=== PATIENT | male | born 1945 | race Caucasian/White ===

== ENCOUNTER → 2016-10-20 | Outpatient (CLI) | payer MEDICARE ==
[~2016-10-20] MED LIST: ATEN100T PO; BACITAB3 OR; BACT800T5 PO; BAYE325T12 PO; DEXA4TA PO; DOXY100C PO; FLOM5CAP PO; GLUC500T PO; LEVA500T PO; MECL12.575 PO; MILKSUS PO; MOM30SS PO; NEXI40CA PO; PERCOCET PO; PLAV75TA PO; SENO8.6T10 PO; VESI5TAB PO; VIBR100C PO
== END ==
LOC: M ONCR 09:43
PROVIDERS: ATTEND Radiology Radiation Oncology
DX: C34.12 Malignant neoplasm of upper lobe, left bronchus or lung (principal); C79.31 Secondary malignant neoplasm of brain

== ENCOUNTER 2016-10-25 17:47 | Outpatient (CLI) | payer MEDICARE ==
[2016-10-25 19:00] VITALS: BP 118/60
[2016-10-25] MEDS ORDERED: diphenhydrAMINE 25 MG CAP PO ONE (19:15)
[2016-10-25] MEDS ORDERED: ACETAMINOPHEN TAB 650MG DOSE (2X325MG) PO ONE (19:15)
[2016-10-25 22:00] VITALS: BP 109/53
[2016-10-25] MEDS ORDERED: FUROSEMIDE 20 MG/2 ML VIAL (J1940) IV ONE (22:00)
[2016-10-26] MEDS ORDERED: SODIUM CHLORIDE 0.9% INJ 10 ML SYR IV PRN (05:30)
[2016-10-26] MEDS ORDERED: SODIUM CHLORIDE 0.9% INJ 10 ML SYR IV SCH (09:00)
== END 2016-10-26 06:10 | disposition home or self-care (01) ==
LOC: M OPCLI4PV 17:47 → M MSPAV 17:52 → M OPCLI4PV 10-26 06:10
PROVIDERS: ATTEND Internal Medicine Medical Oncology
DX: C34.90 Malignant neoplasm of unspecified part of unspecified bronchus or lung (principal)
CPT/HCPCS: 36430; 86850; 86900; 86901; 86920; J1940; P9016

== ENCOUNTER → 2016-10-25 | Outpatient (REF) | payer MEDICARE ==
[~2016-10-25] MED LIST changes: -PLAV75TA PO; +PLAV75TA38 PO
== END | disposition home or self-care (01) ==
LOC: M LAB REF 10:22
PROVIDERS: ATTEND Internal Medicine Medical Oncology
DX: C34.90 Malignant neoplasm of unspecified part of unspecified bronchus or lung (principal)

== ENCOUNTER 2016-11-15 09:41 | Outpatient (CLI) | payer MEDICARE ==
[~2016-11-15 09:41] MED LIST changes: +ACETAMINOPHEN TAB 650MG DOSE (2X325MG) PO SCH; +SODIUM CHLORIDE 0.9% INJ 10 ML SYR IV SCH; +diphenhydrAMINE 25 MG CAP PO SCH
[2016-11-15] MEDS ORDERED: FUROSEMIDE 20 MG/2 ML VIAL (J1940) IV ONE (10:15)
[2016-11-16] MEDS ORDERED: LEVO25TA5 PO (15:22)
[2016-11-16] MEDS ORDERED: REGL5TAB2 PO (15:24)
[2016-11-16] MEDS ORDERED: PRAV40TA2 PO (15:24)
[2016-11-16] MEDS ORDERED: FENT12PA TOP (15:24)
[2016-11-16] MEDS ORDERED: NEUR300C PO (15:25)
[2016-11-16] MEDS ORDERED: HYDR-2807 PO (15:27)
[2016-11-16] MEDS ORDERED: NITR0.4S14 SL (15:27)
[2016-11-16] MEDS ORDERED: ZOFR8TAB4 PO (15:27)
[2016-11-16] MEDS ORDERED: HYDR-3719 PO (15:27)
[2016-11-16] MEDS ORDERED: BETA0.0543 TOP (15:28)
[2016-11-16] MEDS ORDERED: XGEVINJ SC (15:28)
[2016-11-16] MEDS ORDERED: PEG6SYR SC (15:29)
[2016-11-16] MEDS ORDERED: CLAR10CA3 PO (15:30)
[2016-11-16] MEDS ORDERED: [UNRECOGNIZED DRUG - CODE] PO (15:30)
== END 2016-11-15 15:25 | disposition home or self-care (01) ==
LOC: M INFU 09:41
PROVIDERS: ATTEND Internal Medicine Medical Oncology
DX: D64.9 Anemia, unspecified (principal); Z79.899 Other long term (current) drug therapy; Z79.84 Long term (current) use of oral hypoglycemic drugs; Z88.0 Allergy status to penicillin; Z88.1 Allergy status to other antibiotic agents
CPT/HCPCS: 36430; 86850; 86900; 86901; 86920; J1940; P9016

== ENCOUNTER → 2016-12-06 | Outpatient (REF) | payer MEDICARE ==
[~2016-12-06] MED LIST changes: -ACETAMINOPHEN TAB 650MG DOSE (2X325MG) PO SCH; +BETA0.0543 TOP; +CLAR10CA3 PO; +FENT12PA TOP; +HYDR-2807 PO; +HYDR-3719 PO; +LEVO25TA5 PO; +NEUR300C PO; +NITR0.4S14 SL; +PEG6SYR SC; +PRAV40TA2 PO; +REGL5TAB2 PO; -SODIUM CHLORIDE 0.9% INJ 10 ML SYR IV SCH; +XGEVINJ SC; +ZOFR8TAB4 PO; +[UNRECOGNIZED DRUG - CODE] PO; -diphenhydrAMINE 25 MG CAP PO SCH
== END ==
LOC: M LAB REF 13:00
PROVIDERS: ATTEND Internal Medicine Medical Oncology
DX: C32.1 Malignant neoplasm of supraglottis (principal); D64.9 Anemia, unspecified

== ENCOUNTER 2016-12-07 06:59 | Outpatient (CLI) | payer MEDICARE ==
[~2016-12-07] VITALS: Ht 172.7 cm; Wt 81.0 kg
[~2016-12-07 06:59] MED LIST changes: +ACETAMINOPHEN TAB 650MG DOSE (2X325MG) PO ONE; +diphenhydrAMINE 25 MG CAP PO ONE
[2016-12-07] MEDS ORDERED: SODIUM CHLORIDE 0.9% INJ 10 ML SYR IV SCH (09:00)
== END 2016-12-07 09:15 | disposition home or self-care (01) ==
LOC: M INFU 06:59
PROVIDERS: ATTEND Internal Medicine Medical Oncology
DX: D64.9 Anemia, unspecified (principal); Z79.899 Other long term (current) drug therapy; Z79.891 Long term (current) use of opiate analgesic; Z88.0 Allergy status to penicillin
CPT/HCPCS: 36430; P9016

== ENCOUNTER 2016-12-28 09:17 | Outpatient (CLI) | payer MEDICARE ==
[~2016-12-28 09:17] MED LIST changes: -ACETAMINOPHEN TAB 650MG DOSE (2X325MG) PO ONE; +ACETAMINOPHEN TAB 650MG DOSE (2X325MG) PO SCH; +SODIUM CHLORIDE 0.9% INJ 10 ML SYR IV SCH; -diphenhydrAMINE 25 MG CAP PO ONE; +diphenhydrAMINE 25 MG CAP PO SCH
== END 2016-12-28 14:45 | disposition home or self-care (01) ==
LOC: M INFU 09:17
PROVIDERS: ATTEND Internal Medicine Medical Oncology
DX: D64.9 Anemia, unspecified (principal); Z79.899 Other long term (current) drug therapy; Z79.891 Long term (current) use of opiate analgesic; Z88.0 Allergy status to penicillin
CPT/HCPCS: 36430; 86850; 86900; 86901; 86920; P9016

== ENCOUNTER → 2017-01-06 | Outpatient (REF) | payer MEDICARE ==
[~2017-01-06] MED LIST changes: -ACETAMINOPHEN TAB 650MG DOSE (2X325MG) PO SCH; +ATEN25TA PO; +CLOT1CRE71 TOP; -SODIUM CHLORIDE 0.9% INJ 10 ML SYR IV SCH; -diphenhydrAMINE 25 MG CAP PO SCH
[2017-01-06 16:27] LABS: INR 1.03
[2017-01-06 16:35] LABS: DIFF SLIDE NUMBER 284; MEAN CORPUSCULAR HEMOGLOBIN 30.9 pg (27.0-33.0); MEAN CORPUSCULAR HGB CONC 32.3 g/dl (32.0-36.5); MEAN CORPUSCULAR VOLUME 95.7 fl (80.0-96.0); RED CELL DISTRIBUTION WIDTH 16.9 % (11.5-14.5); WHITE BLOOD COUNT 2.9 K/mm3 (4.0-10.0)
[2017-01-06 16:50] LABS: PLATELET COUNT, AUTOMATED 16 k/mm3 (150-450)
[2017-01-06 16:54] LABS: BANDS 3 % (< 11)
[2017-01-06 16:55] LABS: ANISOCYTOSIS 1+
== END ==
LOC: M LAB REF 16:09
PROVIDERS: ATTEND Dentist
DX: C78.7 Secondary malignant neoplasm of liver and intrahepatic bile duct (principal)

== ENCOUNTER 2017-01-07 16:30 | Outpatient (CLI) | payer MEDICARE ==
[~2017-01-07 16:30] MED LIST changes: +ACETAMINOPHEN TAB 650MG DOSE (2X325MG) PO SCH; -ATEN25TA PO; -CLOT1CRE71 TOP; -GASTROGRAFIN SOLUTION 30ML (Q9963) As Ordered ONE; -ISOVUE-370 76% 100ML VIAL (Q9967) As Ordered ONE; +SODIUM CHLORIDE 0.9% INJ 10 ML SYR IV SCH; +diphenhydrAMINE 25 MG CAP PO SCH
[2017-01-07] MEDS ORDERED: SODIUM CHLORIDE 0.9% INJ 10 ML SYR IV PRN (17:30)
[2017-01-07 21:18] LABS: MEAN CORPUSCULAR HEMOGLOBIN 31.8 pg (27.0-33.0); MEAN CORPUSCULAR HGB CONC 33.3 g/dl (32.0-36.5); MEAN CORPUSCULAR VOLUME 95.4 fl (80.0-96.0); WHITE BLOOD COUNT 4.6 K/mm3 (4.0-10.0)
[2017-01-08] MEDS ORDERED: CLOT1CRE71 TOP (03:17)
== END 2017-01-07 21:30 | disposition home or self-care (01) ==
LOC: M OPCLI4PV 16:30 → M MSPAV 16:34 → M OPCLI4PV 21:30
PROVIDERS: ATTEND Internal Medicine Medical Oncology
DX: C34.12 Malignant neoplasm of upper lobe, left bronchus or lung (principal)

== ENCOUNTER 2017-01-07 22:20 | Inpatient (IN) | payer MEDICARE ==
[~2017-01-07] VITALS: Ht 172.7 cm; Wt 75.4 kg
[~2017-01-07 22:20] MED LIST changes: -ACETAMINOPHEN TAB 650MG DOSE (2X325MG) PO SCH; -SODIUM CHLORIDE 0.9% INJ 10 ML SYR IV SCH; -diphenhydrAMINE 25 MG CAP PO SCH
[2017-01-07] MEDS ORDERED: diphenhydrAMINE INJ 50MG/ML VIAL (J1200) IV ONE (23:00)
[2017-01-07 23:22] LABS: MEAN CORPUSCULAR HEMOGLOBIN 31.1 pg (27.0-33.0); MEAN CORPUSCULAR VOLUME 97.2 fl (80.0-96.0); RED CELL DISTRIBUTION WIDTH 17.4 % (11.5-14.5); WHITE BLOOD COUNT 6.4 K/mm3 (4.0-10.0)
[2017-01-07 23:23] LABS: PLATELET COUNT, AUTOMATED 30 k/mm3 (150-450)
[2017-01-07 23:27] LABS: INR 1.11
[2017-01-07 23:54] LABS: ALBUMIN 3.3 GM/DL (3.2-5.2); ALBUMIN/GLOBULIN RATIO 1.06 (1.00-1.93); ALKALINE PHOSPHATASE 148 U/L (45-117); ALT/SGPT 35 U/L (12-78); ANION GAP 11 MEQ/L (8-16); AST/SGOT 20 U/L (15-37); BILIRUBIN,DIRECT 0.2 MG/DL (0.0-0.2); BILIRUBIN,TOTAL 0.8 MG/DL (0.2-1.0); BLOOD UREA NITROGEN 15 MG/DL (7-18); CALCIUM LEVEL 8.1 MG/DL (8.8-10.2); CARBON DIOXIDE LEVEL 27 MEQ/L (21-32); CHLORIDE LEVEL 100 MEQ/L (98-107); CREATININE FOR GFR 0.81 MG/DL (0.70-1.30); GLOMERULAR FILTRATION RATE > 60.0 (>42); GLUCOSE, FASTING 77 MG/DL (83-110); POTASSIUM SERUM 3.4 MEQ/L (3.5-5.1); SODIUM LEVEL 138 MEQ/L (136-145); TOTAL PROTEIN 6.4 GM/DL (6.4-8.2)
[2017-01-08] VITALS (14 sets, daily range): BP systolic 102–144; BP diastolic 49–62
[2017-01-08] MEDS: NS 1,000 ML IV SCH ×3 (00:07→15:38)
[2017-01-08] MEDS ORDERED: NITROGLYCERIN 0.4 MG SUBL TABLET SL SCH (02:00)
[2017-01-08] MEDS ORDERED: POTASSIUM CHLORIDE 10 MEQ SR TABLET PO ONE ×2 (02:15→17:00)
[2017-01-08] MEDS ORDERED: ONDANSETRON 4MG/2ML VIAL (J2405) IV PRN (02:15)
[2017-01-08] MEDS ORDERED: GLUCAGON FOR INJ 1 MG VIAL (J1610) SC PRN (02:15)
[2017-01-08] MEDS ORDERED: IPRATROPIUM 0.5MG/ALBUTEROL 2.5MG INH SOL UD 3ML (DUONEB)(J7620) NEB PRN (02:15)
[2017-01-08] MEDS ORDERED: DEXTROSE 50% 50 ML SYRINGE IV PRN (02:15)
[2017-01-08] MEDS ORDERED: ACETAMINOPHEN TAB 650MG DOSE (2X325MG) PO PRN (02:15)
[2017-01-08] MEDS ORDERED: GLUCOSE 4 GM CHEW TABLET PO PRN (02:15)
[2017-01-08 02:35] LABS: FERRITIN 1350 NG/ML (26-388); MAGNESIUM LEVEL 1.3 MG/DL (1.8-2.4); TOTAL IRON BINDING CAPACITY 222 UG/DL (250-450)
[2017-01-08 02:37] LABS: REASON FOR REVIEW COMPREHENSIVE REVIEW
[2017-01-08 02:48] LABS: ERYTHROCYTE SEDIMENTATION RATE 80 mm/hr (0-20)
[2017-01-08] MEDS ORDERED: CLOT1CRE71 TOP (03:17)
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
[2017-01-08] MEDS ORDERED: MAG SULF 1GM/100ML (MAG RUN) 1 GM in APPROPRIATE DILUENT 1 EA IV ONE (04:30)
[2017-01-08] MEDS: LEVOTHYROXINE 0.05 MG TAB (50 MCG) PO SCH (06:03)
[2017-01-08] MEDS: IPRATROPIUM 0.5MG/ALBUTEROL 2.5MG INH SOL UD 3ML (DUONEB)(J7620) NEB SCH ×2 (07:34→20:36)
[2017-01-08] MEDS ORDERED: FENTANYL REMOVAL DOCUMENTATION MISC XX SCH (09:00)
[2017-01-08] MEDS: GABAPENTIN 300 MG CAP PO SCH ×2 (09:12→20:22)
[2017-01-08] MEDS: LORATADINE 10 MG TAB PO SCH (09:12)
[2017-01-08] MEDS: BETAMETHASONE VAL 0.1% CR 15 GM TOP SCH (09:12)
[2017-01-08] MEDS: PANTOPRAZOLE 40MG INJ (PROTONIX) (C9113) IV SCH ×2 (09:12→20:21)
[2017-01-08] MEDS: fentaNYL 12 MCG/HR PATCH TOP SCH (09:13)
--- NOTE | 2017-01-08 09:52 | ECGEPIP ---
Stationary ECG Study [facility] Test Date: 2017-01-08 Pat Name: ANNALISA DE PAZ Department: Room: [place] [address] Gender: M Shipping Specialist: LUIS : [id number] Requested By: GRABIEL KEBEDE Order Number: [id number] Reading MD: Booker Harper Measurements Intervals [place] Rate: 67 P: 2 MD: 150 QRS: 31 QRSD: 112 T: 19 QT: 447 QTc: 473 Interpretive Statements SINUS RHYTHM NON-SPECIFIC INTRAVENTRICULAR CONDUCTION DELAY PROLONGED QT INTERVAL QT INTERVAL IS LONGER COMPARED TO 12/05/15 Electronically Signed On 01-08-2017 9:51:55 EDT by Booker Harper
[2017-01-08] MEDS: ONDANSETRON 4 MG ORAL DISINTEGRATING TAB (S0181) SL PRN (10:45)
--- NOTE | 2017-01-08 13:26 | IPNPDOC ---
Subjective Date Seen The patient was seen on 01/08/17. Subjective Chief Complaint/HPI The patient is a 71-year-old male admitted with a reason for visit of Symptomatic Anemia. Patient seen and examined at bedside. States he is feeling okay. Admits to loose waterry dark brown diarrhea 4-5 episodes today and yesterday. Admits to sacral ulcer that is 2/10 pain in severity. Admits to sore throat and attributes this to himself as the cause since he drinks and eats very hot liquid things. Admits to a chronic on and off cough, but nothing worse than before. Denies headache, dizziness, fevers, chills, chest pain, SOB, nausea, vomiting, constipation. Admits to a bit of abdominal cramping in the lower abdomen when having to move his bowels. Admits to some bruising on his upper dorsal forearms. Admits to loss of appetite and weakness. General: Reports: Other Symptoms (+loss of appetite), Denies: Chills Constitutional: Reports: Weakness, Denies: Chills, Fever ENT: Reports: Other Symptoms (admits to rotting teeth and loose lower jaw tooth that he was wishing to get removed by dental surgeon), Denies: Head Aches Skin: Reports: Bruising, Other, Denies: Rash Pulmonary: Reports: Cough, Denies: Dyspnea Cardiovascular: Denies: Chest Pain, Palpitations Gastrointestinal: Reports: Abdominal Pain (mainly cramping when he has to have a bowel movement), Diarrhea, Other Symptoms (dark brown loose waterry stools), Denies: Constipation, Hematochezia, Melena, Nausea, Vomiting Genitourinary: Denies: Dysuria, Hematuria Hematologic: Reports: Bruising Musculoskeletal: Reports: Other Symptoms (pain in sacral decubitus ulcer area) Neurological: Reports: Numbness (in the distal aspect of his toes bilaterally due to diabetic neuropathy), Other Symptoms (admits to tingling in the tips of his toes bilaterally due to diabetic neuropathy), Weakness Psych: Reports: Mood Normal Objective Physical Examination General Exam: Positive: Alert, Cooperative, No Acute Distress Eye Exam: Positive: Conjunctiva & lids normal, Negative: Sclera icteric ENT Exam: Positive: Atraumatic, Mucous membr. moist/pink, Pharynx Normal, Tongue Midline, Negative: Pharyngeal Edema Neck Exam: Positive: Lymphadenopathy, Supple, Negative: JVD, thyromegaly Chest Exam: Positive: Clear to auscultation, Diminished, Negative: Rales, Rhonchi, Wheezing Heart Exam: Positive: Normal S1, Normal S2, Rate Normal, Regular Rhythm, Negative: Gallops, Murmurs, Rubs Telemetry: Positive: Sinus Abdomen Exam: Positive: BS Hypoactive, Soft, Negative: Hepatospenomegaly, Mass, Tenderness Extremity Exam: Negative: Clubbing, Cyanosis, Edema Skin Exam: Positive: Other skin issue (+ecchymoses appreciated scattered on dorsal aspects of forearms bilaterally) Neuro Exam: Positive: Normal Speech, Normal Tone Psych Exam: Positive: Memory Intact, Mental status NL, Mood NL, Oriented x 3 Assessment /Plan Assessment 71 yo M with PMH significant for 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 Also found to have thrombocytopenia on bloodwork with platelets currently at 30 status-post platelet transfusion. Problems (1) Symptomatic anemia Status: Acute Response to Treatment: Controlled Discussed With: Patient Problem Specific Plan: Monitor Clinically, Repeat Labs Problem Text: MCV high at 97.2. H&H 6.6 & 20.5. 97.2 indicating macrocytic anemia. B12 and folate pending. Status-post transfusion of 3 PRBCs. Continue to monitor H&H. Transfuse as necessary. Fecal occult testing returned negative. Will consider but hold off on colonoscopy and EGD for now for ruling out GI bleed. Patient reluctant to EGD due to previous hx of perforation and pancreatitis during ERCP for choledocholithiasis in 2013. Will monitor H&H q6 hours and do daily CBCs. Will follow up results when available. Iron panel showed: iron 202 (high), TIBC 222 (low), transferrin % saturation of 91 (high), ferritin 1350 (high), which indicates that this is not iron deficiency anemia. Iron being held for now. Vitamin B12 and folate pending. (2) Thrombocytopenia Status: Acute Response to Treatment: Improving, Controlled Discussed With: Patient Problem Specific Plan: Monitor Clinically, Repeat Labs Problem Text: Initial platelets were 16. After transfusion in ED, platelet count is increased to 30. Now, they are back down to 16. Will transfuse 1 unit of irradiated pheresis platelets. Will recheck CBC tonight. Patient does have some bruising on the dorsal aspect of his forearms noted. Will continue to monitor patient clinically. Will hold off on DVT ppx due to low platelets. (3) Diarrhea Status: Acute Response to Treatment: Uncontrolled Discussed With: Patient Problem Specific Plan: Monitor Clinically Problem Text: Dark waterry black looking diarrhea. Can be attributed to iron pills and infectious etiology. Can be GI bleed, although fecal occult blood negative. GI panel came back negative. Patient admits to recent antibiotic use. Will check stool for lactoferrin. (4) Hypokalemia Status: Acute Response to Treatment: Controlled Discussed With: Patient Problem Specific Plan: Monitor Clinically, Repeat Labs Problem Text: K 3.4 today. Have replaced. Can be secondary to diarrhea GI losses. Follow BMPs when available. (5) Hypomagnesemia Status: Acute Response to Treatment: Controlled Discussed With: Patient Problem Specific Plan: Monitor Clinically, Repeat Labs Problem Text: Mg of 1.3 today. Was replaced. May be secondary to diarrhea/GI losses. Follow up Mg level daily. Supplement as necessary. 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 Continue cream: betamethasone valarate. Will consider PT assistance with wound care. Will encourage daily position changes to patient in order to relieve pressure off R gluteal region.Continue to monitor clinically. (7) Small cell lung cancer Status: Chronic Response to Treatment: Stable Discussed With: Patient Problem Specific Plan: Monitor Clinically Problem Text: Small cell lung cancer with metastases to liver, bone, and brain status-post 10 day course of brain radiation ~ 2 months ago, chemotherapy 1 week ago with 9 months of chemotherapy. Per patient, poor prognosis. Patient follows with Dr. Oneal and states he will discuss the next step/options for being a candidate for further chemotherapy tx and is also considering comfort measures. We will try to make the patient as comfortable as possible. Have continued his zofran 8 mg q6 hours and his pain medication hydrocodone- acetaminophen 10-325 mg at the available dosage at this hospital of only 7.5- 325 mg. Patient encouraged to follow up with Dr. Oneal as outpatient for further management and healthcare needs. (8) History of oropharyngeal cancer Status: Chronic Response to Treatment: Stable Discussed With: Patient Problem Specific Plan: Monitor Clinically Problem Text: Patient denies difficulty swallowing. Is status-post radiation and chemotherapy. Is eating and drinking despite his reported loss of appetite. Continue to monitor. (9) Status post chemotherapy, time since less than 4 weeks Status: Acute Response to Treatment: Stable Discussed With: Patient Problem Specific Plan: Monitor Clinically Problem Text: For small cell lung cancer 1 week ago. Also had chemotherapy for oropharyngeal cancer for an unknown timeframe. (10) Status post radiation therapy within four to twelve weeks Status: Acute Response to Treatment: Stable Discussed With: Patient Problem Specific Plan: Monitor Clinically Problem Text: For small cell lung cancer for 10 day course of radiation to the brain ~2 months ago. Also had radiation for oropharyngeal cancer in general but do not know timeline. (11) Metastases to the liver Status: Chronic Response to Treatment: Stable Discussed With: Patient Problem Specific Plan: Monitor Clinically Problem Text: Small cell lung cancer with mets. (12) Metastasis to bone Status: Chronic Response to Treatment: Stable Discussed With: Patient Problem Specific Plan: Monitor Clinically Problem Text: Small cell lung cancer with mets. (13) Metastasis to brain Status: Chronic Response to Treatment: Stable Discussed With: Patient Problem Specific Plan: Monitor Clinically Problem Text: Small cell lung cancer with mets. (14) Choledocholithiasis Status: Resolved Discussed With: Patient Problem Text: Has previous history of choledocholithiasis. No current symptoms. Continue to monitor for any new indicative symptoms. (15) Non-insulin dependent type 2 diabetes mellitus Status: Chronic Response to Treatment: Improving Problem Specific Plan: Monitor Clinically, Repeat Labs Problem Text: Patient actually hypoglycemic at the moment. Fasting glucose is low at 77 and 82. Hypoglycemic protocol on board. Continue to monitor fingersticks. Use ISS PRN. (16) Coronary artery disease Status: Acute Response to Treatment: Stable Discussed With: Patient Problem Specific Plan: Monitor Clinically Problem Text: Status-post stent. Continue pravastatin 40 mg QHS. (17) COPD (chronic obstructive pulmonary disease) Status: Chronic Response to Treatment: Stable Discussed With: Patient Problem Specific Plan: Monitor Clinically Problem Text: Not on any nebulizers at home as per patient. Also not listed in home medications list. However, we will give duonebs q12 routine treatment for patient to keep comfortable and q2h PRN SOB/wheezing since patient has hx. . (18) Hypertension Status: Chronic Response to Treatment: Stable Discussed With: Patient Problem Specific Plan: Monitor Clinically Problem Text: BP 111/58. BPs are soft so we are holding all antihypertensive med atenolol at this point. Will restart as needed. (19) Hyperlipidemia Status: Chronic Response to Treatment: Stable Discussed With: Patient Problem Specific Plan: Monitor Clinically Problem Text: Continue pravastatin. (20) Supraventricular tachycardia Status: Chronic Response to Treatment: Stable Discussed With: Patient Problem Specific Plan: Monitor Clinically Problem Text: Will hold atenolol for now due to low BPs. Will restart when necessary. Plan/VTE VTE Prophylaxis Ordered?: No (Holding pharmacologic DVT ppx at this time due to low platelets. Platelets are now 16 from 30 this AM. ) Plan Diet: Continue Current Activity: Continue Current, Encourage Ambulation Therapy: PT, OT Diagnostics: Check Labs, Repeat Labs in AM, Other Diagnostics (stool lactoferrin) Anticipated Discharge: Home Disposition FULL CODE VS, I&O, 24H, [facility] Vital Signs/I&O Vital Signs Date Time Temp Pulse Resp B/P Pulse Ox O2 Delivery O2 Flow Rate FiO2 01/08/17 09:43 18 01/08/17 07:30 96.0 54 111/58 96 Room Air I&O- Last 24 Hours up to 6 AM 01/08/17 05:59 Intake Total 941 ml Balance 941 ml Laboratory Data 24H LABS Laboratory Tests 2 01/07/17 23:09: Prothromb Time International Ratio 1.11, Prothrombin Time 14.4 01/07/17 23:10: Aspartate Amino Transf (AST/SGOT) 20, Alanine Aminotransferase (ALT/SGPT) 35, Lactate Dehydrogenase 216, Alkaline Phosphatase 148H, Total Bilirubin 0.8, Direct Bilirubin 0.2, Albumin 3.3, Albumin/Globulin Ratio 1.06, Anion Gap 11, Calcium Level 8.1L, Differential Pathologist's Review COMPREHENSIVE REVIEW, Differential Slide Review Report, Erythrocyte Sedimentation Rate 80H, Ferritin 1350H, Glomerular Filtration Rate > 60.0, Iron Level 202H, Magnesium Level 1.3L , Peripheral Blood Smear Path Consult PERIPHERAL SMEAR, Total Iron Binding Capacity 222L, Total Protein 6.4, Transferrin % Saturation 91.0H CBC/BMP Laboratory Tests 01/07/17 23:10 Red Blood Count 2.11 L, Mean Corpuscular Volume 97.2 H, Mean Corpuscular Hemoglobin 31.1, Mean Corpuscular Hemoglobin Concent 32.0, Red Cell Distribution Width 17.4 H Microbiology Microbiology 01/08/17 Gastrointestinal Tract Panel (PCR) - Final, Complete 01/08/17 Stool Occult Blood (ZANDER) - Final, Complete GME ATTESTATION GME ATTESTATION My preceptor for this patient encounter was Dr. Gustavo Munguia, and was physically present in the building during the encounter and was fully available. As needed , all aspects of the patient interview, examination, medical decision making process, and medical care plan development were reviewed and approved by the preceptor. Preceptor is aware and concurs with the plan as stated in the body of this note and will attest to such by his/her cosignature. CHAVO GUZMAN OGME-1 Jan 08, 2017 13:26
[2017-01-08 16:08] LABS: MEAN CORPUSCULAR HEMOGLOBIN 31.2 pg (27.0-33.0); MEAN CORPUSCULAR HGB CONC 33.3 g/dl (32.0-36.5); MEAN CORPUSCULAR VOLUME 93.7 fl (80.0-96.0); RED CELL DISTRIBUTION WIDTH 17.2 % (11.5-14.5); WHITE BLOOD COUNT 6.8 K/mm3 (4.0-10.0)
[2017-01-08 16:20] LABS: INR 1.13
[2017-01-08 16:26] LABS: ANION GAP 12 MEQ/L (8-16); BLOOD UREA NITROGEN 10 MG/DL (7-18); CALCIUM LEVEL 7.8 MG/DL (8.8-10.2); CARBON DIOXIDE LEVEL 26 MEQ/L (21-32); CHLORIDE LEVEL 105 MEQ/L (98-107); CREATININE FOR GFR 0.67 MG/DL (0.70-1.30); GLOMERULAR FILTRATION RATE > 60.0 (>42); GLUCOSE, FASTING 82 MG/DL (83-110); POTASSIUM SERUM 3.3 MEQ/L (3.5-5.1); SODIUM LEVEL 143 MEQ/L (136-145)
[2017-01-08] MEDS: PRAVASTATIN 20 MG TAB PO SCH (20:22)
[2017-01-08 22:58] LABS: REASON FOR REVIEW COMPREHENSIVE REVIEW
[2017-01-09] VITALS (9 sets, daily range): BP systolic 115–151; BP diastolic 57–81
[2017-01-09 01:41] LABS: MEAN CORPUSCULAR HEMOGLOBIN 31.2 pg (27.0-33.0); MEAN CORPUSCULAR HGB CONC 34.3 g/dl (32.0-36.5); RED CELL DISTRIBUTION WIDTH 17.2 % (11.5-14.5); WHITE BLOOD COUNT 6.8 K/mm3 (4.0-10.0)
[2017-01-09] MEDS: LEVOTHYROXINE 0.05 MG TAB (50 MCG) PO SCH (05:35)
[2017-01-09 05:48] LABS: MEAN CORPUSCULAR HEMOGLOBIN 31.4 pg (27.0-33.0); MEAN CORPUSCULAR HGB CONC 33.4 g/dl (32.0-36.5); MEAN CORPUSCULAR VOLUME 94.1 fl (80.0-96.0); RED CELL DISTRIBUTION WIDTH 17.6 % (11.5-14.5); WHITE BLOOD COUNT 7.6 K/mm3 (4.0-10.0)
[2017-01-09 05:53] LABS: INR 1.23
[2017-01-09 06:09] LABS: ANION GAP 10 MEQ/L (8-16); BLOOD UREA NITROGEN 7 MG/DL (7-18); CALCIUM LEVEL 7.2 MG/DL (8.8-10.2); CARBON DIOXIDE LEVEL 26 MEQ/L (21-32); CHLORIDE LEVEL 108 MEQ/L (98-107); CREATININE FOR GFR 0.49 MG/DL (0.70-1.30); GLOMERULAR FILTRATION RATE > 60.0 (>42); GLUCOSE, FASTING 70 MG/DL (83-110); MAGNESIUM LEVEL 1.4 MG/DL (1.8-2.4); POTASSIUM SERUM 3.3 MEQ/L (3.5-5.1); SODIUM LEVEL 144 MEQ/L (136-145)
[2017-01-09] MEDS ORDERED: POTASSIUM CHLORIDE 10 MEQ SR TABLET PO ONE (06:45)
[2017-01-09] MEDS: ANEXSIA, NORCO 7.5MG/325MG TABLET(HYDROCODONE/APAP) PO PRN (07:28)
[2017-01-09] MEDS: MAG SULF 1GM/100ML (MAG RUN) 1 GM in APPROPRIATE DILUENT 1 EA IV SCH ×2 (07:29→08:49)
[2017-01-09] MEDS: IPRATROPIUM 0.5MG/ALBUTEROL 2.5MG INH SOL UD 3ML (DUONEB)(J7620) NEB SCH ×2 (07:58→19:48)
--- NOTE | 2017-01-09 08:07 | IPNPDOC ---
Subjective Date Seen The patient was seen on 01/09/17. Subjective Chief Complaint/HPI The patient is a 71-year-old male admitted with a reason for visit of Symptomatic Anemia. General: Denies: Chills, Fatigue, Malaise, Night Sweats, Normal Appetite, Other Symptoms, ROS Unobtainable Constitutional: Denies: Chills, Fatigue, Fever, Lethargy, Malaise, Night Sweats , Other, Weakness, Weight Loss Eyes: Denies: Conjunctivae inflammation, Eyelid inflammation, Other, Pain, Redness, Vision change ENT: Denies: Dysphagia, Ear Pain, Epistaxis, Head Aches, Other Symptoms, Post Nasal Drip, Sinus Congestion, Sore Throat Skin: Denies: Breakdown, Bruising, Dry, Itching, Jaundice, Lesions, Nail Changes, Other, Rash Pulmonary: Denies: Cough, Dyspnea, Other Symptoms, Pleuritic Chest Pain Cardiovascular: Denies: Chest Pain, Edema, Lt Headedness, Orthopnea, Other Symptoms, Palpitations, Paroxysmal Noc. Dyspnea Gastrointestinal: Denies: Abdominal Pain, Constipation, Diarrhea, Hematochezia , Melena, Nausea, Other Symptoms, Vomiting Genitourinary: Denies: Dysuria, Frequency, Hematuria, Incontinence, Other Symptoms, Retention Hematologic: Denies: Bleeding Excessively, Bruising, Enlarged Lymph Nodes, Other Hematologic, Petecchia, Purpura Musculoskeletal: Reports: Back Pain Objective Physical Examination General Exam: Positive: Alert, Cooperative, No Acute Distress Eye Exam: Positive: Conjunctiva & lids normal, EOMI, PERRLA, Negative: Sclera icteric ENT Exam: Positive: Atraumatic, Mucous membr. moist/pink, Negative: Pharyngeal Edema Neck Exam: Positive: Lymphadenopathy, Supple, Negative: JVD, thyromegaly Chest Exam: Positive: Clear to auscultation, Diminished, Negative: Rales, Rhonchi, Wheezing Heart Exam: Positive: Normal S1, Normal S2, Rate Normal, Regular Rhythm, Negative: Gallops, Murmurs, Rubs Telemetry: Positive: No significant arrhythmia, Sinus Abdomen Exam: Positive: Normal bowel sounds, Soft, Negative: Hepatospenomegaly, Mass, Tenderness Extremity Exam: Negative: Clubbing, Cyanosis, Edema Skin Exam: Positive: Other skin issue (+ecchymoses appreciated scattered on dorsal aspects of forearms bilaterally) Neuro Exam: Positive: Normal Speech Psych Exam: Positive: Mental status NL, Mood NL, Oriented x 3 Assessment /Plan Problems (1) Symptomatic anemia Status: Acute Response to Treatment: Controlled Discussed With: Patient Problem Specific Plan: Monitor Clinically, Repeat Labs Problem Text: B12 and folate pending. Status-post transfusion of 3 PRBCs. Continue to monitor H&H. Transfuse as necessary, keep Hg>7 or >8 if symptomatic. FOB negative, will repeat. Patient reluctant to EGD due to previous hx of perforation and pancreatitis during ERCP for choledocholithiasis in 2013. (2) Thrombocytopenia Status: Acute Response to Treatment: Improving, Controlled Discussed With: Patient Problem Specific Plan: Monitor Clinically, Repeat Labs Problem Text: Initial platelets were 16. After transfusion in ED, platelet count is increased to 30. Now, they are back down to 16. Transfused another 1 unit of irradiated pheresis platelets. Serial CBC, no active bleeding. Patient does have some bruising on the dorsal aspect of his forearms noted. Will continue to monitor patient clinically. Avoid pharmacological DVT prophylaxis. (3) Diarrhea Status: Acute Response to Treatment: Improving Discussed With: Patient Problem Specific Plan: Monitor Clinically Problem Text: GI panel came back negative. Patient admits to recent antibiotic use. Will check stool for lactoferrin. Continue with anti-motility agents. Patient states has improved. (4) Hypokalemia Status: Acute Response to Treatment: Controlled, Progressing Discussed With: Patient Problem Specific Plan: Monitor Clinically, Repeat Labs Problem Text: Continue to follow and replete as needed. Can be secondary to diarrhea GI losses. (5) Hypomagnesemia Status: Acute Response to Treatment: Controlled Discussed With: Patient Problem Specific Plan: Monitor Clinically, Repeat Labs Problem Text: Continue to follow and replete as needed. May be secondary to diarrhea/GI losses. (6) Decubitus ulcer Status: Chronic Discussed With: Patient Problem Specific Plan: Monitor Clinically Problem Text: Present on admission. 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 Continue cream: betamethasone valarate. Will consider PT assistance with wound care. Will encourage daily position changes to patient in order to relieve pressure off R gluteal region.Continue to monitor clinically. (7) Small cell lung cancer Status: Chronic Response to Treatment: Stable Discussed With: Patient Problem Specific Plan: Consult Specialist, Monitor Clinically Problem Text: Small cell lung cancer with metastases to liver, bone, and brain status-post 10 day course of brain radiation ~ 2 months ago, chemotherapy 1 week ago with 9 months of chemotherapy. Per patient, poor prognosis. Patient follows with Dr. Oneal and states he will discuss the next step/options for being a candidate for further chemotherapy tx and is also considering comfort measures. We will try to make the patient as comfortable as possible. Have continued his zofran 8 mg q6 hours and his pain medication hydrocodone- acetaminophen 10-325 mg at the available dosage at this hospital of only 7.5- 325 mg. Patient encouraged to follow up with Dr. Oneal as outpatient for further management and healthcare needs. (8) History of oropharyngeal cancer Status: Chronic Response to Treatment: Stable Discussed With: Patient Problem Specific Plan: Monitor Clinically Problem Text: Patient denies difficulty swallowing. Is status-post radiation and chemotherapy. Is eating and drinking despite his reported loss of appetite. Continue to monitor. (9) Status post chemotherapy, time since less than 4 weeks Status: Acute Response to Treatment: Stable Discussed With: Patient Problem Specific Plan: Monitor Clinically Problem Text: For small cell lung cancer 1 week ago. Also had chemotherapy for oropharyngeal cancer for an unknown timeframe. (10) Status post radiation therapy within four to twelve weeks Status: Acute Response to Treatment: Stable Discussed With: Patient Problem Specific Plan: Monitor Clinically Problem Text: For small cell lung cancer for 10 day course of radiation to the brain ~2 months ago. Also had radiation for oropharyngeal cancer in general but do not know timeline. (11) Metastases to the liver Status: Chronic Response to Treatment: Stable Discussed With: Patient Problem Specific Plan: Monitor Clinically Problem Text: Small cell lung cancer with mets. (12) Metastasis to bone Status: Chronic Response to Treatment: Stable Discussed With: Patient Problem Specific Plan: Monitor Clinically Problem Text: Small cell lung cancer with mets. (13) Metastasis to brain Status: Chronic Response to Treatment: Stable Discussed With: Patient Problem Specific Plan: Monitor Clinically Problem Text: Small cell lung cancer with mets. (14) Choledocholithiasis Status: Resolved Discussed With: Patient Problem Text: Has previous history of choledocholithiasis. No current symptoms. Continue to monitor for any new indicative symptoms. (15) Non-insulin dependent type 2 diabetes mellitus Status: Chronic Response to Treatment: Improving Problem Specific Plan: Monitor Clinically, Repeat Labs Problem Text: Patient actually hypoglycemic at the moment. Fasting glucose is low at 77 and 82. Hypoglycemic protocol on board. Continue to monitor fingersticks. Use ISS PRN. (16) Coronary artery disease Status: Chronic Response to Treatment: Stable Discussed With: Patient Problem Specific Plan: Monitor Clinically Problem Text: Status-post stent. Continue pravastatin 40 mg QHS. (17) COPD (chronic obstructive pulmonary disease) Status: Chronic Response to Treatment: Stable Discussed With: Patient Problem Specific Plan: Monitor Clinically Problem Text: Not on any nebulizers at home as per patient. Also not listed in home medications list. However, we will give duonebs q12 routine treatment for patient to keep comfortable and q2h PRN SOB/wheezing since patient has hx. . (18) Hypertension Status: Chronic Response to Treatment: Stable Discussed With: Patient Problem Specific Plan: Monitor Clinically Problem Text: BP 111/58. BPs are soft so we are holding all antihypertensive med atenolol at this point. Will restart as needed. (19) Hyperlipidemia Status: Chronic Response to Treatment: Stable Discussed With: Patient Problem Text: Continue pravastatin. (20) Supraventricular tachycardia Status: Chronic Response to Treatment: Stable Discussed With: Patient Problem Specific Plan: Monitor Clinically Problem Text: Will hold atenolol for now due to low BPs. Will restart when necessary. Plan/VTE VTE Prophylaxis Ordered?: No (Holding pharmacologic DVT ppx at this time due to low platelets. Platelets are now 16 from 30 this AM. ) Plan Diet: Continue Current Activity: Continue Current, Encourage Ambulation Therapy: PT, OT Diagnostics: Check Labs, Repeat Labs in AM Anticipated Discharge: Home VS, I&O, 24H, [facility] Vital Signs/I&O Vital Signs Date Time Temp Pulse Resp B/P Pulse Ox O2 Delivery O2 Flow Rate FiO2 01/09/17 07:28 18 01/09/17 04:00 98.4 75 126/60 99 Room Air I&O- Last 24 Hours up to 6 AM 01/09/17 06:00 Intake Total 2120 ml Output Total 1000 ml Balance 1120 ml Laboratory Data 24H LABS Laboratory Tests 2 01/08/17 15:49: Differential Pathologist's Review COMPREHENSIVE REVIEW, Differential Slide Review Report, Peripheral Blood Smear Path Consult PERIPHERAL SMEAR 01/08/17 15:50: Activated Partial Thromboplast Time 28.1, Anion Gap 12, Blood Urea Nitrogen 10, Creatinine 0.67L, Sodium Level 143, Potassium Level 3.3L, Chloride Level 105, Carbon Dioxide Level 26, Calcium Level 7.8L, Glomerular Filtration Rate > 60.0, Prothromb Time International Ratio 1.13, Prothrombin Time 14.6H 01/09/17 05:34: Activated Partial Thromboplast Time 30.1, Anion Gap 10, Blood Urea Nitrogen 7, Creatinine 0.49L, Sodium Level 144, Potassium Level 3.3L, Chloride Level 108H, Carbon Dioxide Level 26, Calcium Level 7.2L, Glomerular Filtration Rate > 60.0, Prothromb Time International Ratio 1.23, Prothrombin Time 15.6H, Magnesium Level 1.4L CBC/BMP Laboratory Tests 01/08/17 15:49 Red Blood Count 2.99 L, Mean Corpuscular Volume 93.7, Mean Corpuscular Hemoglobin 31.2, Mean Corpuscular Hemoglobin Concent 33.3, Red Cell Distribution Width 17.2 H 01/08/17 15:50 Calcium Level 7.8 L 01/09/17 01:32 Red Blood Count 2.76 L, Mean Corpuscular Volume 91.0, Mean Corpuscular Hemoglobin 31.2, Mean Corpuscular Hemoglobin Concent 34.3, Red Cell Distribution Width 17.2 H 01/09/17 05:34 Red Blood Count 2.75 L, Mean Corpuscular Volume 94.1, Mean Corpuscular Hemoglobin 31.4, Mean Corpuscular Hemoglobin Concent 33.4, Red Cell Distribution Width 17.6 H, Calcium Level 7.2 L Microbiology Microbiology 01/09/17 Stool Occult Blood (ZANDER), Received Pending 01/09/17 Stool Lactoferrin, Received Pending 01/08/17 Gastrointestinal Tract Panel (PCR) - Final, Complete 01/08/17 Stool Occult Blood (ZANDER) - Final, Complete DENIZ DORAN MD Jan 09, 2017 08:07
[2017-01-09] MEDS: GABAPENTIN 300 MG CAP PO SCH ×2 (08:44→21:24)
[2017-01-09] MEDS: PANTOPRAZOLE 40MG INJ (PROTONIX) (C9113) IV SCH ×2 (08:44→21:23)
[2017-01-09] MEDS: LORATADINE 10 MG TAB PO SCH (08:44)
[2017-01-09] MEDS: BETAMETHASONE VAL 0.1% CR 15 GM TOP SCH (08:49)
[2017-01-09] MEDS: NS 1,000 ML IV SCH ×2 (10:03→15:29)
[2017-01-09] MEDS: ONDANSETRON 4 MG ORAL DISINTEGRATING TAB (S0181) SL PRN (10:33)
[2017-01-09] MEDS: PERCOCET 5MG/325MG TAB PO PRN ×2 (11:42→17:18)
[2017-01-09 14:09] LABS: MEAN CORPUSCULAR HEMOGLOBIN 30.9 pg (27.0-33.0); MEAN CORPUSCULAR HGB CONC 32.8 g/dl (32.0-36.5); MEAN CORPUSCULAR VOLUME 94.3 fl (80.0-96.0); RED CELL DISTRIBUTION WIDTH 17.5 % (11.5-14.5); WHITE BLOOD COUNT 10.5 K/mm3 (4.0-10.0)
[2017-01-09] MEDS: PRAVASTATIN 20 MG TAB PO SCH (21:24)
[2017-01-09 21:50] LABS: MEAN CORPUSCULAR HEMOGLOBIN 31.3 pg (27.0-33.0); MEAN CORPUSCULAR HGB CONC 34.1 g/dl (32.0-36.5); MEAN CORPUSCULAR VOLUME 91.9 fl (80.0-96.0); RED CELL DISTRIBUTION WIDTH 17.2 % (11.5-14.5); WHITE BLOOD COUNT 10.2 K/mm3 (4.0-10.0)
[2017-01-09] MEDS ORDERED: MAGIC MOUTHWASH SUSPENSION BTL SS PRN (22:30)
[2017-01-09 23:26] LABS: ANION GAP 8 MEQ/L (8-16); BLOOD UREA NITROGEN 3 MG/DL (7-18); CALCIUM LEVEL 7.4 MG/DL (8.8-10.2); CARBON DIOXIDE LEVEL 27 MEQ/L (21-32); CHLORIDE LEVEL 107 MEQ/L (98-107); CREATININE FOR GFR 0.54 MG/DL (0.70-1.30); GLOMERULAR FILTRATION RATE > 60.0 (>42); GLUCOSE, FASTING 91 MG/DL (83-110); MAGNESIUM LEVEL 1.7 MG/DL (1.8-2.4); POTASSIUM SERUM 3.2 MEQ/L (3.5-5.1); SODIUM LEVEL 142 MEQ/L (136-145)
[2017-01-10] MEDS: MAG SULF 1GM/100ML (MAG RUN) 1 GM in APPROPRIATE DILUENT 1 EA IV SCH ×2 (00:12→01:34)
[2017-01-10 00:30] VITALS: BP 140/67
[2017-01-10] MEDS ORDERED: POTASSIUM CHLORIDE 10 MEQ SR TABLET PO ONE ×2 (01:00)
[2017-01-10] MEDS: NS 1,000 ML IV SCH (01:35)
[2017-01-10] MEDS: PERCOCET 5MG/325MG TAB PO PRN ×4 (03:56→21:45)
[2017-01-10 04:00] VITALS: BP 141/69
[2017-01-10] MEDS: LEVOTHYROXINE 0.05 MG TAB (50 MCG) PO SCH (05:40)
[2017-01-10 05:52] LABS: MEAN CORPUSCULAR HEMOGLOBIN 31.5 pg (27.0-33.0); MEAN CORPUSCULAR HGB CONC 34.2 g/dl (32.0-36.5); MEAN CORPUSCULAR VOLUME 92.2 fl (80.0-96.0); RED CELL DISTRIBUTION WIDTH 17.4 % (11.5-14.5); WHITE BLOOD COUNT 12.8 K/mm3 (4.0-10.0)
[2017-01-10 05:58] LABS: INR 1.21
[2017-01-10 06:15] LABS: ANION GAP 7 MEQ/L (8-16); BLOOD UREA NITROGEN 2 MG/DL (7-18); CALCIUM LEVEL 7.4 MG/DL (8.8-10.2); CARBON DIOXIDE LEVEL 27 MEQ/L (21-32); CHLORIDE LEVEL 109 MEQ/L (98-107); CREATININE FOR GFR 0.45 MG/DL (0.70-1.30); GLOMERULAR FILTRATION RATE > 60.0 (>42); GLUCOSE, FASTING 88 MG/DL (83-110); POTASSIUM SERUM 3.9 MEQ/L (3.5-5.1); SODIUM LEVEL 143 MEQ/L (136-145)
[2017-01-10 06:38] LABS: MAGNESIUM LEVEL 2.2 MG/DL (1.8-2.4)
[2017-01-10] MEDS: IPRATROPIUM 0.5MG/ALBUTEROL 2.5MG INH SOL UD 3ML (DUONEB)(J7620) NEB SCH ×2 (07:01→20:45)
[2017-01-10 07:59] VITALS: BP 138/70
--- NOTE | 2017-01-10 08:41 | IPNPDOC ---
Subjective Date Seen The patient was seen on 01/10/17. Subjective Chief Complaint/HPI The patient is a 71-year-old male admitted with a reason for visit of Symptomatic Anemia. Events since last encounter NSVT noted last night. Electrolytes repleted. Echo ordered. General: Denies: Chills, Fatigue, Malaise, Night Sweats, Normal Appetite, Other Symptoms, ROS Unobtainable Constitutional: Denies: Chills, Fatigue, Fever, Lethargy, Malaise, Night Sweats , Other, Weakness, Weight Loss Eyes: Denies: Conjunctivae inflammation, Eyelid inflammation, Other, Pain, Redness, Vision change ENT: Denies: Dysphagia, Ear Pain, Epistaxis, Head Aches, Other Symptoms, Post Nasal Drip, Sinus Congestion, Sore Throat Skin: Denies: Breakdown, Bruising, Dry, Itching, Jaundice, Lesions, Nail Changes, Other, Rash Pulmonary: Denies: Cough, Dyspnea, Other Symptoms, Pleuritic Chest Pain Cardiovascular: Denies: Chest Pain, Edema, Lt Headedness, Orthopnea, Other Symptoms, Palpitations, Paroxysmal Noc. Dyspnea Gastrointestinal: Denies: Abdominal Pain, Constipation, Diarrhea, Hematochezia , Melena, Nausea, Other Symptoms, Vomiting Genitourinary: Denies: Dysuria, Frequency, Hematuria, Incontinence, Other Symptoms, Retention Objective Physical Examination General Exam: Positive: Alert, Cooperative, No Acute Distress Eye Exam: Positive: Conjunctiva & lids normal, EOMI, PERRLA, Negative: Sclera icteric ENT Exam: Positive: Atraumatic, Mucous membr. moist/pink, Negative: Pharyngeal Edema Neck Exam: Positive: Lymphadenopathy, Supple, Negative: JVD, thyromegaly Chest Exam: Positive: Clear to auscultation, Diminished, Negative: Rales, Rhonchi, Wheezing Heart Exam: Positive: Normal S1, Normal S2, Rate Normal, Regular Rhythm, Negative: Gallops, Murmurs, Rubs Telemetry: Positive: No significant arrhythmia, Sinus Abdomen Exam: Positive: Normal bowel sounds, Soft, Negative: Hepatospenomegaly, Mass, Tenderness Extremity Exam: Negative: Clubbing, Cyanosis, Edema Skin Exam: Positive: Other skin issue (+ecchymoses appreciated scattered on dorsal aspects of forearms bilaterally) Neuro Exam: Positive: Normal Speech Psych Exam: Positive: Mental status NL, Mood NL, Oriented x 3 Assessment /Plan Problems (1) Symptomatic anemia Status: Acute Response to Treatment: Controlled Discussed With: Patient Problem Specific Plan: Monitor Clinically, Repeat Labs Problem Text: B12 and folate pending. Status-post transfusion of 3 PRBCs. Continue to monitor H&H. Transfuse as needed , Hg>8. FOB negative x2. If scopes needed, patient reluctant to EGD due to previous hx of perforation and pancreatitis during ERCP for choledocholithiasis in 2013. (2) Thrombocytopenia Status: Acute Response to Treatment: Improving, Controlled Discussed With: Patient Problem Specific Plan: Monitor Clinically, Repeat Labs Problem Text: transfused 1 unit of irradiated platelets. Serial CBC, no active bleeding. Stable around 20. Repeat platelet count continues to improve. No transfusion. Patient does have some bruising on the dorsal aspect of his forearms noted. Will continue to monitor patient clinically. Avoid pharmacological DVT prophylaxis. (3) NSVT (nonsustained ventricular tachycardia) Status: Acute Response to Treatment: Progressing Discussed With: Patient Problem Specific Plan: Monitor Clinically, Repeat Labs, Repeat Tests Problem Text: Electrolytes repleted. Continue to follow. 2D echocardiogram pending. BB was on hold secondary to parameters, have resumed lower dosage with hold parameters. (4) Diarrhea Status: Resolved Response to Treatment: Improving Discussed With: Patient Problem Specific Plan: Monitor Clinically Problem Text: GI panel came back negative. Patient admits to recent antibiotic use. Stool lactoferrin positive. Continue with anti-motility agents. Patient states has improved. (5) Hypokalemia Status: Acute Response to Treatment: Controlled, Progressing Discussed With: Patient Problem Specific Plan: Monitor Clinically, Repeat Labs Problem Text: Continue to follow and replete as needed. Can be secondary to diarrhea GI losses. (6) Hypomagnesemia Status: Acute Response to Treatment: Controlled Discussed With: Patient Problem Specific Plan: Monitor Clinically, Repeat Labs Problem Text: Continue to follow and replete as needed. May be secondary to diarrhea/GI losses. (7) Decubitus ulcer Status: Chronic Discussed With: Patient Problem Specific Plan: Monitor Clinically Problem Text: Present on admission. 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 Continue cream: betamethasone valarate. Will consider PT assistance with wound care. Will encourage daily position changes to patient in order to relieve pressure off R gluteal region.Continue to monitor clinically. 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 Per patient, poor prognosis. Patient follows with Dr. Oneal and states he will discuss the next step/options for being a candidate for further chemotherapy tx and is also considering comfort measures. We will try to make the patient as comfortable as possible. Have continued his zofran 8 mg q6 hours and his pain medication hydrocodone- acetaminophen 10-325 mg at the available dosage at this hospital of only 7.5- 325 mg. Patient encouraged to follow up with Dr. Oneal as outpatient for further management and healthcare needs. (9) History of oropharyngeal cancer Status: Chronic Response to Treatment: Stable Discussed With: Patient Problem Specific Plan: Monitor Clinically Problem Text: Patient denies difficulty swallowing. Is status-post radiation and chemotherapy. Is eating and drinking despite his reported loss of appetite. Continue to monitor. (10) Status post chemotherapy, time since less than 4 weeks Status: Acute Response to Treatment: Stable Discussed With: Patient Problem Specific Plan: Monitor Clinically Problem Text: For small cell lung cancer 1 week ago. Also had chemotherapy/RT for oropharyngeal cancer for an unknown timeframe. (11) Status post radiation therapy within four to twelve weeks Status: Acute Response to Treatment: Stable Discussed With: Patient Problem Specific Plan: Monitor Clinically Problem Text: For small cell lung cancer for 10 day course of radiation to the brain ~2 months ago. Also had radiation for oropharyngeal cancer in general but do not know timeline. (12) Metastases to the liver Status: Chronic Response to Treatment: Stable Discussed With: Patient Problem Specific Plan: Monitor Clinically Problem Text: Small cell lung cancer with mets. (13) Metastasis to bone Status: Chronic Response to Treatment: Stable Discussed With: Patient Problem Specific Plan: Monitor Clinically Problem Text: Small cell lung cancer with mets. (14) Metastasis to brain Status: Chronic Response to Treatment: Stable Discussed With: Patient Problem Specific Plan: Monitor Clinically Problem Text: Small cell lung cancer with mets. (15) Non-insulin dependent type 2 diabetes mellitus Status: Chronic Response to Treatment: Improving Problem Specific Plan: Monitor Clinically, Repeat Labs (16) Coronary artery disease Status: Chronic Response to Treatment: Stable Discussed With: Patient Problem Specific Plan: Monitor Clinically Problem Text: Status-post stent. Continue , atenolol, pravastatin 40 mg QHS. (17) COPD (chronic obstructive pulmonary disease) Status: Chronic Response to Treatment: Stable Discussed With: Patient Problem Specific Plan: Monitor Clinically Problem Text: Not on any nebulizers at home as per patient. Also not listed in home medications list. However, we will give duonebs q12 routine treatment for patient to keep comfortable and q2h PRN SOB/wheezing since patient has hx. . (18) Hypertension Status: Chronic Response to Treatment: Stable Discussed With: Patient Problem Specific Plan: Monitor Clinically Problem Text: Continue with atenolol. (19) Hyperlipidemia Status: Chronic Response to Treatment: Stable Discussed With: Patient Problem Text: Continue pravastatin. (20) Supraventricular tachycardia Status: Chronic Response to Treatment: Stable Discussed With: Patient Problem Specific Plan: Monitor Clinically Problem Text: Atenolol. Plan/VTE VTE Prophylaxis Ordered?: Yes (Holding pharmacologic DVT ppx at this time due to low platelets. Mechanical prophylaxis.) Plan IVF: Discontinue Diet: Continue Current Activity: Continue Current, Encourage Ambulation Therapy: PT, OT Diagnostics: Check Labs, Repeat Labs in AM, TTE Anticipated Discharge: Home NSVT last night, asymptomatic, VSS - electrolytes repleted. 2D echocardiogram pending. Hgb/platelets stable. VS, I&O, 24H, [facility] Vital Signs/I&O Vital Signs Date Time Temp Pulse Resp B/P Pulse Ox O2 Delivery O2 Flow Rate FiO2 01/10/17 07:59 98.2 106 18 138/70 97 Room Air I&O- Last 24 Hours up to 6 AM 01/10/17 06:00 Intake Total 4410 ml Output Total 2700 ml Balance 1710 ml Laboratory Data 24H LABS Laboratory Tests 2 01/09/17 11:38: Bedside Glucose (Misc Panel) 125H 01/09/17 16:31: Bedside Glucose (Misc Panel) 83 01/09/17 20:10: Bedside Glucose (Misc Panel) 115H 01/09/17 22:46: Anion Gap 8, Blood Urea Nitrogen 3#L, Creatinine 0.54L, Sodium Level 142, Potassium Level 3.2L, Chloride Level 107, Carbon Dioxide Level 27, Calcium Level 7.4L, Total Creatine Kinase 70, Creatine Kinase MB 1.7, Creatine Kinase MB Relative Index 2.42, Glomerular Filtration Rate > 60.0, Magnesium Level 1.7L , Troponin I < 0.02 01/10/17 05:38: Activated Partial Thromboplast Time 33.2, Anion Gap 7L, Blood Urea Nitrogen 2L, Creatinine 0.45L, Sodium Level 143, Potassium Level 3.9#, Chloride Level 109H, Carbon Dioxide Level 27, Calcium Level 7.4L, Glomerular Filtration Rate > 60.0, Magnesium Level 2.2, Prothromb Time International Ratio 1.21, Prothrombin Time 15.4H CBC/BMP Laboratory Tests 01/09/17 13:42 Red Blood Count 3.08 L, Mean Corpuscular Volume 94.3, Mean Corpuscular Hemoglobin 30.9, Mean Corpuscular Hemoglobin Concent 32.8, Red Cell Distribution Width 17.5 H 01/09/17 21:30 Red Blood Count 2.93 L, Mean Corpuscular Volume 91.9, Mean Corpuscular Hemoglobin 31.3, Mean Corpuscular Hemoglobin Concent 34.1, Red Cell Distribution Width 17.2 H 01/09/17 22:46 Calcium Level 7.4 L, Total Creatine Kinase 70 01/10/17 05:38 Red Blood Count 2.88 L, Mean Corpuscular Volume 92.2, Mean Corpuscular Hemoglobin 31.5, Mean Corpuscular Hemoglobin Concent 34.2, Red Cell Distribution Width 17.4 H, Calcium Level 7.4 L Microbiology Microbiology 01/09/17 Stool Occult Blood (ZANDER) - Final, Complete 01/09/17 Stool Lactoferrin - Final, Complete 01/08/17 Gastrointestinal Tract Panel (PCR) - Final, Complete 01/08/17 Stool Occult Blood (ZANDER) - Final, Complete DENIZ DORAN MD Jan 10, 2017 08:41 DENIZ DORAN MD Jan 10, 2017 08:41 Microbiology 01/09/17 Stool Occult Blood (ZANDER) - Final, Complete 01/09/17 Stool Lactoferrin - Final, Complete 01/08/17 Gastrointestinal Tract Panel (PCR) - Final, Complete 01/08/17 Stool Occult Blood (ZANDER) - Final, Complete DENIZ DORAN MD Jan 10, 2017 08:41
[2017-01-10] MEDS: GABAPENTIN 300 MG CAP PO SCH ×2 (09:24→20:17)
[2017-01-10] MEDS: ATENOLOL 25 MG TAB PO SCH ×2 (09:24→20:17)
[2017-01-10] MEDS: LORATADINE 10 MG TAB PO SCH (09:24)
[2017-01-10] MEDS: PANTOPRAZOLE 40MG INJ (PROTONIX) (C9113) IV SCH ×2 (09:24→20:17)
[2017-01-10] MEDS: BETAMETHASONE VAL 0.1% CR 15 GM TOP SCH (09:26)
[2017-01-10 12:00] VITALS: BP 124/61
[2017-01-10 16:00] VITALS: BP 136/67
[2017-01-10] MEDS: ANBESOL GEL 10% MT PRN ×2 (17:23→22:28)
[2017-01-10 17:48] LABS: MEAN CORPUSCULAR VOLUME 92.9 fl (80.0-96.0)
[2017-01-10 17:49] LABS: MEAN CORPUSCULAR HEMOGLOBIN 31.1 pg (27.0-33.0); MEAN CORPUSCULAR HGB CONC 33.5 g/dl (32.0-36.5); RED CELL DISTRIBUTION WIDTH 17.4 % (11.5-14.5)
[2017-01-10] MEDS: PRAVASTATIN 20 MG TAB PO SCH (20:16)
[2017-01-10 20:30] VITALS: BP 104/51
--- NOTE | 2017-01-10 21:11 | ECGEPIP ---
Stationary ECG Study [facility] Test Date: 2017-01-09 Pat Name: ANNALISA DE PAZ Department: Room: [place] [address] Gender: M [employer]: : 1945 Requested By: SAILAJA FLORES Order Number: [id number] Reading MD: Ayad Dash Measurements Intervals [place] Rate: 92 P: 52 RI: 139 QRS: 27 QRSD: 102 T: 26 QT: 407 QTc: 504 Interpretive Statements Normal sinus rhythm with PVC Intraventricular conduction delay Nonspecific ST-T wave abnormalities Faster HR, otherwise no change since 01/08/2017 Electronically Signed On 01-10-2017 21:10:51 EDT by Ayad Dash
[2017-01-11 00:03] VITALS: BP 104/58
[2017-01-11 05:23] VITALS: BP 125/59
[2017-01-11] MEDS: LEVOTHYROXINE 0.05 MG TAB (50 MCG) PO SCH (05:23)
[2017-01-11] MEDS: PERCOCET 5MG/325MG TAB PO PRN (05:33)
[2017-01-11 05:46] LABS: ANION GAP 9 MEQ/L (8-16); BLOOD UREA NITROGEN 2 MG/DL (7-18); CALCIUM LEVEL 8.2 MG/DL (8.8-10.2); CARBON DIOXIDE LEVEL 27 MEQ/L (21-32); CHLORIDE LEVEL 105 MEQ/L (98-107); CREATININE FOR GFR 0.65 MG/DL (0.70-1.30); GLOMERULAR FILTRATION RATE > 60.0 (>42); GLUCOSE, FASTING 84 MG/DL (83-110); POTASSIUM SERUM 3.9 MEQ/L (3.5-5.1); SODIUM LEVEL 141 MEQ/L (136-145)
[2017-01-11 05:47] LABS: INR 1.14
[2017-01-11 05:49] LABS: MEAN CORPUSCULAR HEMOGLOBIN 31.2 pg (27.0-33.0); MEAN CORPUSCULAR HGB CONC 33.5 g/dl (32.0-36.5); MEAN CORPUSCULAR VOLUME 93.2 fl (80.0-96.0); RED CELL DISTRIBUTION WIDTH 17.4 % (11.5-14.5)
[2017-01-11] MEDS: IPRATROPIUM 0.5MG/ALBUTEROL 2.5MG INH SOL UD 3ML (DUONEB)(J7620) NEB SCH (07:32)
[2017-01-11 08:00] VITALS: BP 117/55
--- NOTE | 2017-01-11 08:35 | ECHO ---
DATE OF PROCEDURE: DATE OF SERVICE: 01/10/2017 REFERRING PHYSICIAN: Dr. Arthur Castillo. INDICATION: Ventricular tachycardia. The patient measures 173 cm and weighs 78 kg. DIMENSIONS: IVS - 1.0 LV - 3.9 LVPW - 1.1 LA - 3.1 Aorta 3.4 FINDINGS: The study is of acceptable technical quality. Left ventricle is normal size and systolic function with estimated EF around 65%. Right ventricle does not appear enlarged. Both atria appear grossly normal. Aortic valve is minimally sclerotic but has three cusp and normal mobility. Mitral valve appears normal. Tricuspid valve also appears normal. Pulmonic valve was only poorly visualized but grossly appears normal. There is no pericardial effusion but pericardial fat pad is noted. Inferior vena cava is of relatively small caliber. Aortic root is normal. Aortic arch and abdominal aorta were not seen. Doppler interrogation reveals no aortic stenosis or insufficiency. There is also no significant mitral stenosis or insufficiency. There is trace tricuspid insufficiency, but quality of TR jet was poor and consequently pulmonary artery pressure was not adequately estimated. Mitral inflow pattern and tissue Doppler imaging of mitral annulus reveal grade 1 diastolic dysfunction (E velocity 77 cm/s, E prime septal 8.1 cm/s and E prime lateral at 8.9 cm/s). CONCLUSION: 1. Study of is of acceptable technical quality. 2. Normal LV size and systolic function, grade 1 diastolic dysfunction. 3. No significant valvular disease. 4. Normal central venous pressure. 5. Unable to estimate pulmonary artery pressure. COMMENTS: SBE prophylaxis is not recommended. Relatively normal echocardiogram that does not provide explanation for ventricular tachycardia.
[2017-01-11 09:00] VITALS: BP 125/59
[2017-01-11] MEDS: ATENOLOL 25 MG TAB PO SCH (09:00)
[2017-01-11] MEDS: PANTOPRAZOLE 40MG INJ (PROTONIX) (C9113) IV SCH (09:04)
[2017-01-11] MEDS: LORATADINE 10 MG TAB PO SCH (09:06)
[2017-01-11] MEDS: fentaNYL 12 MCG/HR PATCH TOP SCH (09:06)
[2017-01-11] MEDS: GABAPENTIN 300 MG CAP PO SCH (09:06)
[2017-01-11] MEDS: ANEXSIA, NORCO 7.5MG/325MG TABLET(HYDROCODONE/APAP) PO PRN (09:06)
[2017-01-11] MEDS: BETAMETHASONE VAL 0.1% CR 15 GM TOP SCH (09:07)
[2017-01-11] MEDS ORDERED: ATEN25TA PO (09:35)
[2017-01-12 09:11] LABS: VITAMIN B12 LEVEL 1824 PG/ML (247-911)
[2017-01-12 09:13] LABS: FOLATE 3.2 NG/ML (>5.4)
--- NOTE | 2017-01-18 11:45 | DS.PDOC ---
Discharge Summary General Date of Admission Jan 08, 2017 Date of Discharge Jan 11, 2017 at 11:02 Primary Care Physician: Lars Crowley Attending Physician: PHIL CHAVEZ MD Discharge Summary Consults: None Discharge diagnosis: Symptomatic Anemia Diarrhea Thrombocytopenia Secondary diagnosis: Small Cell Lung Cancer with Metastases to the liver, bone, and brain status- post chemotherapy and radiation History of Oropharyngeal Cancer status-post radiation and chemotherapy. Hypokalemia History of Choledocholithiasis with ERCP causing a contained perforation and pancreatitis CAD status-post stent COPD, bronchitis vs. emphysematous type Hypertension Type 2 Noninsulin Dependent Diabetes Mellitus Hyperlipidemia History of SVT Chronic Decubitis Ulcer of the Bilateral Ischium worse R > L side Hospital course: This is a 71 yo M who presented to [facility] ED on 01/07 and 01/08 initially for bloodwork prior to a dental procedure for a tooth extraction and was incidentally found to be thrombocytopenic. Platelets were 16 and patient was given platelets transfusion which increased platelets to 30 on admission but patient was found to be severely anemic with hemoglobin of 5.8. Patient was kept in the hospital for additional transfusions and concomitantly developed diarrhea during the transfusion which was black and liquid in nature. During admission, patient was found to have severe symptomatic anemia with Hgb of 6.6, thrombocytopenia with platelets of 30, and diarrhea. Anemia most likely secondary to chemotherapy. Last chemotherapy patient had received was approximately 1 week prior to presentation to the ED. FOBT was negative x 2. Stool lactoferrin for polys was positive. GI tract panel was negative. Patient received blood transfusions: status-post 3 units of leukocyte reduced RBCs and 1 unit of irradiated platelets. Hgb remained stable in the 9's. Patient remained afebrile and did not develop any infections during stay. Peripheral smear was done which showed Pancytopenia, Normochromic normocytic anemia, multifactorial, Leukoerythroblastosis, with presence of a few nucleated RBCs and a few immature myeloid cells, No blasts or evidence for acute leukemia noted , and Hx of small cell carcinoma metastatic to bone and multiple other sites, diagnosed in 2016. Patient's pain was controlled with percocet, norco, and lidocaine pain patches. His home medications were continued. Vitamin B12, folate , and iron studies were obtained which showed elevated levels of ferritin and transferrin % saturation as well as iron, low levels of TIBC, high vitamin B12, low folate. MCV high indicating macrocytic anemia. Patient's electrolytes were monitored and repleted for hypokalemia and hypomagnesemia. Diarrhea was controlled with antimotility agents and had improved. No pharmacologic DVT ppx was given due to bleeding risk. Also echocardiogram was obtained for ventricular tachycardia and showed: Normal LV size and systolic function, grade 1 diastolic dysfunction, No significant valvular disease, Normal central venous pressure, and no estimate of pulmonary artery pressure. Patient's condition had improved and he was medically/hemodynamically stable. Progress note on date of discharge 01/11/17: Subjective: Patient seen and examined at bedside. Denies headache, dizziness, fevers, chills , chest pain, nausea, vomiting, abdominal pain, constipation. Diarrhea has improved. Denies rashes or lesions anywhere. Denies pain anywhere and his pain is controlled at area of sacral decubiti. Objective: Vitals: T99.4, P 86, RR 18, BP 117/55, Pulse Ox: 92% RA I/O: 2600/3350 mLs, -750 mLs balance, UO: 1.80 mL/kg/hr Wt: 77.6 kg today, 76.5 kg yesterday General Exam: Alert, Cooperative, No Acute Distress Eye Exam: Conjunctiva & lids normal, Sclera nonicteric ENT Exam: Atraumatic, Mucous membranes moist/pink, Pharynx Normal, Tongue Midline, No Pharyngeal Edema Neck Exam: Supple. No cervical LAD bilaterally. No JVD, No thyromegaly Lung Exam/Chest Exam: Symmetrical chest rise bilaterally. Clear to auscultation bilaterally, Diminished breath sounds. No Rales, Rhonchi, Wheezing Heart Exam: Normal S1, Normal S2, Rate Normal, Regular Rhythm. No Gallops, Murmurs, Rubs Telemetry: Sinus Abdomen Exam: Hypoactive BS, Soft. No Hepatospenomegaly, Mass, or Tenderness Extremity Exam: No Clubbing, Cyanosis, Edema Skin Exam: +ecchymoses appreciated scattered on dorsal aspects of forearms bilaterally Neuro Exam: Normal Speech, Normal Tone Psych Exam: Memory Intact, Mental status NL, Mood NL, Oriented x 3 Labs: Please see below. Assessment: 71 yo M with PMH significant for small cell lung cancer with metastases to liver, bone, and brain on chemotherapy, hx of oropharyngeal cancer status-post chemo/radiation therapy, CAD status-post stent placement, HTN , COPD, NIDDM Type 2, HLD, SVT, bilateral sacral decubitus ulcer at ischium admitted for symptomatic anemia, thrombocytopenia, and diarrhea. Status-post 3 units of leukocyte reduced RBCs and 1 unit of irradiated platelets. Disposition/Plan: Discharge to home with new script for atenolol 25 mg PO BID. Discontinue atenolol 100 mg PO daily due to preventing risk for hypotension and bradycardia. Patient well controlled on atenolol 25 mg. Advise to obtain bloodwork twice weekly for 3 weeks to monitor CBC. Follow-up: With PCP Dr. Crowley within 7 days. Activity: As tolerated. Diet: Regular and as tolerated. Medications on discharge: Please see listed below. Time spent on discharge: 35 minutes. Microbiology Microbiology 01/09/17 Stool Occult Blood (AZNDER) - Final, Complete 01/09/17 Stool Lactoferrin - Final, Complete 01/08/17 Gastrointestinal Tract Panel (PCR) - Final, Complete 01/08/17 Stool Occult Blood (ZANDER) - Final, Complete Discharge Medications Scheduled (Slow-Release Iron) 45 Mg Tab 45 MG PO DAILY (Reported) Atenolol (Atenolol) 25 Mg Tab 25 MG PO BID Betamethasone/Clotrimazole (Clotrimazole/Betamethason 1-0.05 %) 1 Dose/15 Gm Cream 0 TOP ASDIRECTED (Reported) APPLIED TO RIGHT GLUTEAL REGION BID Denosumab Injection (Xgeva) 120 Mg/1.7 Ml Inj 120 MG SC ASDIRECTED (Reported) MONTHLY *LAST DOSE 12/28/2016 Esomeprazole Magnesium Trihydr (Nexium) 40 Mg Cap 40 MG PO DAILY (Reported) Fentanyl (Duragesic) 12 Mcg Tdsy 12 MCG TOP Q72H (Reported) APPLIED TO LEFT SHOULDER - DUE 01/08/2017 Gabapentin (Neurontin) 300 Mg Cap 300 MG PO BID (Reported) Levothyroxine Sodium (Synthroid) 25 Mcg Tab 50 MCG PO QAM (Reported) Loratadine (Claritin) 10 Mg Cap 10 MG PO DAILY (Reported) Nitroglycerin (Nitroglycerin) 0.4 Mg Sub 0.4 MG SL ASDIRECTED (Reported) Pegfilgastrim (Neulasta) 6 Mg/0.6 Ml Inj 6 MG SC ASDIRECTED (Reported) MONTHLY POST-CHEMO *LAST DOSE 12/28/2016 Pravastatin Sod (Pravastatin Sodium) 40 Mg Tab 40 MG PO QHS (Reported) Scheduled PRN Acetaminophen/Hydrocodone (Hydrocodone/Acetaminophen 10-325 mg) 1 Tab Tab 1 TAB PO Q6H PRN PRN PAIN (Reported) Ondansetron (Zofran Odt) 8 Mg Tab 8 MG PO Q6H PRN PRN NAUSEA (Reported) Allergies Coded Allergies: Cephalosporins (Verified Allergy, Intermediate, RASH, 01/22/13) Penicillins (Verified Allergy, Unknown, 01/22/13) Penicillins Cross Reactors (Verified Allergy, Unknown, 01/22/13) GME ATTESTATION GME ATTESTATION My preceptor for this patient encounter was Dr. Phil Chavez, and was physically present in the building during the encounter and was fully available. As needed , all aspects of the patient interview, examination, medical decision making process, and medical care plan development were reviewed and approved by the preceptor. Preceptor is aware and concurs with the plan as stated in the body of this note and will attest to such by his/her cosignature. CHAVO GUZMAN OGME-1 Jan 18, 2017 11:45
== END 2017-01-11 11:02 | disposition home or self-care (01) | DRG 812 ==
LOC: M ED 23:35 → M ED INP 01-08 01:08 → M PCU 01-08 03:07 → OBSVTOIN 01-10 10:44
PROVIDERS: ADMIT Internal Medicine; ATTEND Internal Medicine
PROC: 30233N1 Transfusion of Nonautologous Red Blood Cells into Peripheral Vein, Percutaneous Approach (ICD-10-PCS; principal; 2017-01-08)
PROC: 30233R1 Transfusion of Nonautologous Platelets into Peripheral Vein, Percutaneous Approach (ICD-10-PCS; 2017-01-08)
DX: D64.81 Anemia due to antineoplastic chemotherapy (principal); C79.51 Secondary malignant neoplasm of bone; C78.7 Secondary malignant neoplasm of liver and intrahepatic bile duct; C79.31 Secondary malignant neoplasm of brain; C34.90 Malignant neoplasm of unspecified part of unspecified bronchus or lung; E78.5 Hyperlipidemia, unspecified; I25.10 Atherosclerotic heart disease of native coronary artery without angina pectoris; J44.9 Chronic obstructive pulmonary disease, unspecified; I10 Essential (primary) hypertension; Z88.0 Allergy status to penicillin; Z79.899 Other long term (current) drug therapy; R19.7 Diarrhea, unspecified; E87.6 Hypokalemia; E11.9 Type 2 diabetes mellitus without complications; L89.159 Pressure ulcer of sacral region, unspecified stage; D69.6 Thrombocytopenia, unspecified; E83.42 Hypomagnesemia

== ENCOUNTER → 2017-01-07 | Outpatient (CLI) | payer MEDICARE ==
[~2017-01-07] MED LIST changes: +GASTROGRAFIN SOLUTION 30ML (Q9963) As Ordered ONE; +ISOVUE-370 76% 100ML VIAL (Q9967) As Ordered ONE
--- NOTE | 2017-01-07 16:52 | REP ---
Clinical: Lung cancer. Comparison: 05/22/2014. Findings: Lung bases cannot exclude subtle reticulonodular interstitial changes. Visualized portions of the heart and pericardium are normal. Liver demonstrates an macronodular contour representing change compared to 2014 and concerning for underlying hepatocellular disease and metastatic disease. Spleen, pancreas, bilateral adrenal glands are normal for noncontrast evaluation. Kidneys demonstrate chronic symmetric perinephric stranding and suspected small left parapelvic cysts. The enteric system is without obstruction or acute inflammatory process normal terminal ileum and appendix identified in the right lower quadrant. Stranding in the deep right xander pelvis consistent with changes from prior infectious/inflammatory process and drainage catheter placement. Pelvis demonstrates normal bladder and age appropriate prostate/seminal vesicles. Small fat containing left inguinal hernia noted. No ascites. No obvious adenopathy. Moderate atherosclerotic changes of the aorta and branch vessels noted. Skeletal structures demonstrate diffuse sclerotic metastatic disease involving the visualized thoracolumbar spine, pelvis and hips. Impression: 1. Liver demonstrates a macronodular concerning for underlying hepatocellular disease and/or metastatic disease. 2. Diffuse skeletal sclerotic metastatic disease. 3. Chronic changes within the abdomen and pelvis and no evidence for further acute intra-abdominal or pelvic pathology appreciated Signed by Jae Mcclellan MD 01/07/2017 04:43 P
--- NOTE | 2017-01-07 17:08 | REP ---
Clinical: History of lung cancer. Comparison: 08/25/2016. Findings: Biapical opacities likely represent scarring and are similar to prior examination. Scattered subtle ill-defined areas of scarring are appreciated along with subtle chronic-appearing reticular nodular changes in the right middle lobe and mild bronchiectasis. These findings likely represent sequelae of prior infiltrates which have all resolved when compared to prior examination. No significant residual or new areas of consolidation, significant nodule or mass lesion appreciated. No pleural effusion/reaction. No pneumothorax. No obvious adenopathy. Mediastinum demonstrates atherosclerotic changes to the thoracic aorta and coronary arteries without pericardial effusion or cardiomegaly. [id number] identified within the anterior left chest wall with tip extending into the SVC. Osseous structures demonstrate scattered sclerotic lesions throughout the visualized thoracolumbar spine relatively stable compared to prior examination suggesting treated osseous metastatic disease. Impression: 1. Scattered chronic-appearing changes to the bilateral lung vallejo without significant acute consolidation, nodule or mass lesion. Correlation with PET CT may be warranted to evaluate for subtle, occult process. 2. Relatively stable sclerotic osseous lesions consistent with treated metastatic disease. 3. Atherosclerotic changes to the thoracic aorta and coronary arteries. Signed by Jae Mcclellan MD 01/07/2017 04:59 P
== END ==
LOC: M RAD 15:42
PROVIDERS: ATTEND Internal Medicine Medical Oncology
DX: C34.90 Malignant neoplasm of unspecified part of unspecified bronchus or lung (principal); M89.9 Disorder of bone, unspecified; K76.89 Other specified diseases of liver; I25.10 Atherosclerotic heart disease of native coronary artery without angina pectoris

== ENCOUNTER 2017-01-14 06:46 | Outpatient (CLI) | payer MEDICARE ==
--- NOTE | 2017-01-11 21:16 | DS.PDOC ---
Discharge Summary General Date of Admission Date of Discharge Discharge Summary Consults: Discharge diagnosis: Secondary diagnosis: Hospital course: Progress note on date of discharge: Subjective: Objective: Vitals: Gen.: [Patient awake, alert and oriented, verbal and able to answer questions appropriately. He does not appear to be in any acute distress] Heart: [Regular rate and rhythm, normal S1-S2. No murmurs, rubs, clicks or gallops] Lungs: [Clear to auscultation bilaterally. No wheezes, rales or rhonchi] Abdomen: [Active bowel sounds, soft, nontender, no masses to palpation] Labs: Assessment: Disposition: Follow-up: Activity: Diet: Medications on discharge: Cc: Time spent on discharge: Discharge Medications Scheduled (Slow-Release Iron) 45 Mg Tab 45 MG PO DAILY (Reported) Atenolol (Atenolol) 25 Mg Tab 25 MG PO BID Betamethasone/Clotrimazole (Clotrimazole/Betamethason 1-0.05 %) 1 Dose/15 Gm Cream 0 TOP ASDIRECTED (Reported) APPLIED TO RIGHT GLUTEAL REGION BID Denosumab Injection (Xgeva) 120 Mg/1.7 Ml Inj 120 MG SC ASDIRECTED (Reported) MONTHLY *LAST DOSE 12/28/2016 Esomeprazole Magnesium Trihydr (Nexium) 40 Mg Cap 40 MG PO DAILY (Reported) Fentanyl (Duragesic) 12 Mcg Tdsy 12 MCG TOP Q72H (Reported) APPLIED TO LEFT SHOULDER - DUE 01/08/2017 Gabapentin (Neurontin) 300 Mg Cap 300 MG PO BID (Reported) Levothyroxine Sodium (Synthroid) 25 Mcg Tab 50 MCG PO QAM (Reported) Loratadine (Claritin) 10 Mg Cap 10 MG PO DAILY (Reported) Nitroglycerin (Nitroglycerin) 0.4 Mg Sub 0.4 MG SL ASDIRECTED (Reported) Pegfilgastrim (Neulasta) 6 Mg/0.6 Ml Inj 6 MG SC ASDIRECTED (Reported) MONTHLY POST-CHEMO *LAST DOSE 12/28/2016 Pravastatin Sod (Pravastatin Sodium) 40 Mg Tab 40 MG PO QHS (Reported) Scheduled PRN Acetaminophen/Hydrocodone (Hydrocodone/Acetaminophen 10-325 mg) 1 Tab Tab 1 TAB PO Q6H PRN PRN PAIN (Reported) Ondansetron (Zofran Odt) 8 Mg Tab 8 MG PO Q6H PRN PRN NAUSEA (Reported) Allergies Coded Allergies: Cephalosporins (Verified Allergy, Intermediate, RASH, 01/22/13) Penicillins (Verified Allergy, Unknown, 01/22/13) Penicillins Cross Reactors (Verified Allergy, Unknown, 01/22/13) CHAVO GUZMAN OGME-1 Jan 11, 2017 21:16
[~2017-01-14 06:46] MED LIST changes: +ATEN25TA PO; +CLOT1CRE71 TOP
[2017-01-14 07:41] LABS: MEAN CORPUSCULAR HEMOGLOBIN 31.1 pg (27.0-33.0); MEAN CORPUSCULAR HGB CONC 32.8 g/dl (32.0-36.5); MEAN CORPUSCULAR VOLUME 95.1 fl (80.0-96.0); RED CELL DISTRIBUTION WIDTH 17.6 % (11.5-14.5); WHITE BLOOD COUNT 19.6 K/mm3 (4.0-10.0)
[2017-01-14] MEDS ORDERED: SODIUM CHLORIDE 0.9% INJ 10 ML SYR IV SCH (09:00)
== END 2017-01-14 07:25 | disposition home or self-care (01) ==
LOC: M INFU 06:46
PROVIDERS: ATTEND Internal Medicine
DX: D64.9 Anemia, unspecified (principal); D69.6 Thrombocytopenia, unspecified

== ENCOUNTER 2017-03-13 22:05 | Inpatient (IN) | payer MEDICARE ==
[~2017-03-13] VITALS: Ht 165.1 cm; Wt 66.2 kg
[~2017-03-13 22:05] MED LIST changes: +fentaNYL 12 MCG/HR PATCH TOP SCH
[2017-03-13] MEDS ORDERED: levETIRAcetam INJection 750 MG in D5W 100 ML IV ONE (22:30)
[2017-03-13 22:57] LABS: BASO % 0.1 % (0.0-1.0); EOS % 0.2 % (0.0-3.0); LARGE UNSTAINED CELL # 0.1 K/mm3 (0.0-0.4); LARGE UNSTAINED CELL % 0.5 % (0.0-4.0); LYMPH # 0.6 K/mm3 (1.5-4.5); LYMPH % 3.3 % (24.0-44.0); MEAN CORPUSCULAR HEMOGLOBIN 32.6 pg (27.0-33.0); MEAN CORPUSCULAR HGB CONC 33.8 g/dl (32.0-36.5); MEAN CORPUSCULAR VOLUME 96.4 fl (80.0-96.0); MONO # 0.6 K/mm3 (0.0-0.8); MONO % 4.4 % (0.0-5.0); NEUTROPHILS % 91.5 % (36.0-66.0); PLATELET COUNT, AUTOMATED 181 k/mm3 (150-450); WHITE BLOOD COUNT 14.2 K/mm3 (4.0-10.0)
--- NOTE | 2017-03-13 23:00 | REPUSA ---
CT of the head Clinical history: Headache. Protocol: Multiple axial CT images obtained with 5 mm slice thickness were obtained through the head without administration of contrast. Comparison: 08/10/2016. Findings: The ventricles and sulci are symmetric but prominent in size bilaterally. There are periven tricular areas of low attenuation throughout the deep white matter. There is no evidence of acute hem orrhage or infarct. There is no midline shift, mass effect, or extra-axial fluid collection. The osse ous structures are unremarkable. The visualized paranasal sinuses and mastoid air cells are clear. Impression: No acute hemorrhage or infarct. Findings are consistent with mild age-related atrophy and chronic small vessel ischemic disease.
[2017-03-13 23:13] LABS: ANION GAP 11 MEQ/L (8-16); BLOOD UREA NITROGEN 18 MG/DL (7-18); CALCIUM LEVEL 8.9 MG/DL (8.8-10.2); CARBON DIOXIDE LEVEL 24 MEQ/L (21-32); CHLORIDE LEVEL 94 MEQ/L (98-107); CREATININE FOR GFR 0.67 MG/DL (0.70-1.30); GLOMERULAR FILTRATION RATE > 60.0 (>42); GLUCOSE, FASTING 107 MG/DL (83-110); POTASSIUM SERUM 3.9 MEQ/L (3.5-5.1); SODIUM LEVEL 129 MEQ/L (136-145)
[2017-03-14] MEDS ORDERED: MEGE400SUS PO (00:03)
[2017-03-14] MEDS ORDERED: SENN8.6T54 PO (00:06)
[2017-03-14] MEDS ORDERED: NS 1,000 ML IV SCH (00:58)
[2017-03-14] MEDS ORDERED: MORPHINE 2 MG/ML 1ML SYRINGE IV PRN (01:00)
[2017-03-14] MEDS ORDERED: MORPHINE 2 MG/ML 1ML SYRINGE IV ONE (01:00)
[2017-03-14 02:15] VITALS: BP 170/86
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
[2017-03-14 04:00] VITALS: BP 175/79
[2017-03-14] MEDS ORDERED: FENTANYL REMOVAL DOCUMENTATION MISC XX SCH (04:00)
[2017-03-14 05:41] LABS: BASO % 0.1 % (0.0-1.0); EOS # 0.1 K/mm3 (0.0-0.50); EOS % 0.6 % (0.0-3.0); LARGE UNSTAINED CELL # 0.1 K/mm3 (0.0-0.4); LARGE UNSTAINED CELL % 0.6 % (0.0-4.0); LYMPH # 0.4 K/mm3 (1.5-4.5); LYMPH % 2.1 % (24.0-44.0); MEAN CORPUSCULAR HEMOGLOBIN 32.7 pg (27.0-33.0); MEAN CORPUSCULAR VOLUME 96.2 fl (80.0-96.0); MONO # 0.6 K/mm3 (0.0-0.8); NEUTROPHILS # 19.2 K/mm3 (1.8-7.7); NEUTROPHILS % 93.6 % (36.0-66.0); PLATELET COUNT, AUTOMATED 205 k/mm3 (150-450); RED CELL DISTRIBUTION WIDTH 14.9 % (11.5-14.5); WHITE BLOOD COUNT 20.6 K/mm3 (4.0-10.0)
[2017-03-14 06:05] LABS: ALBUMIN 3.5 GM/DL (3.2-5.2); ALBUMIN/GLOBULIN RATIO 0.97 (1.00-1.93); ALKALINE PHOSPHATASE 126 U/L (45-117); ALT/SGPT 74 U/L (12-78); ANION GAP 12 MEQ/L (8-16); AST/SGOT 53 U/L (15-37); BILIRUBIN,TOTAL 0.9 MG/DL (0.2-1.0); BLOOD UREA NITROGEN 17 MG/DL (7-18); CALCIUM LEVEL 8.3 MG/DL (8.8-10.2); CARBON DIOXIDE LEVEL 24 MEQ/L (21-32); CHLORIDE LEVEL 93 MEQ/L (98-107); CREATININE FOR GFR 0.52 MG/DL (0.70-1.30); GLOMERULAR FILTRATION RATE > 60.0 (>42); GLUCOSE, FASTING 104 MG/DL (83-110); MAGNESIUM LEVEL 1.9 MG/DL (1.8-2.4); POTASSIUM SERUM 3.5 MEQ/L (3.5-5.1); SODIUM LEVEL 129 MEQ/L (136-145); TOTAL PROTEIN 7.1 GM/DL (6.4-8.2)
[2017-03-14 08:23] VITALS: BP 150/73
[2017-03-14] MEDS: levETIRAcetam INJection 500 MG in D5W MINI-BAG PLUS 100 ML IV SCH ×2 (09:53→20:54)
--- NOTE | 2017-03-14 10:05 | IPN ---
DATE: 03/14/2017 Apollo is seen in PCU, patient of Dr. Logan in hospitalists service. He has a history of metastatic small cell lung cancer followed by Dr. Oneal. He was admitted after having a seizure. He has not regained normal mental status. Family is asking for comfort measures today. PHYSICAL EXAMINATION: He is unresponsive. He is grasping objects but not following commands. 150/73, pulse 69, respiratory 18, 95% oxygen saturations. Moves arms and legs with equal strength. Lungs: Clear. Heart: Regular rhythm. Abdomen: Soft, nontender. No peripheral edema. LABS: White count 28.6, hemoglobin 39, platelets 205. Sodium is still 129. IMPRESSION: Patient's family is requesting comfort measures only. They would like Hospice and they are hoping that patient can be discharged back to his home under Hospice care. They would like him to at home and not in the hospital or in the Hospice residence. At this point, we are going to transition to comfort measures. We are going to stop the IV fluids. Continue IV Keppra until he is able to take oral. I have ordered morphine, Ativan and atropine for secretions. Consult Hospice.
[2017-03-14] MEDS: MORPHINE 10MG/0.5ML ORAL CONCENTRATE SOLUTION U/D SL PRN ×6 (11:22→22:22)
[2017-03-14] MEDS: LORazepam 0.5 MG TAB PO PRN ×3 (12:06→22:22)
[2017-03-14] MEDS: ATROPINE SULFATE 1% OP SOLN 2 ML BTL SL PRN ×2 (12:43→18:47)
[2017-03-15] MEDS: MORPHINE 10MG/0.5ML ORAL CONCENTRATE SOLUTION U/D SL PRN ×8 (02:03→08:48)
[2017-03-15] MEDS: ATROPINE SULFATE 1% OP SOLN 2 ML BTL SL PRN (02:15)
[2017-03-15] MEDS: LORazepam 0.5 MG TAB PO PRN (02:21)
[2017-03-15] MEDS ORDERED: SCOPOLAMINE 1.5 MG TRANSDERMAL TOP SCH (04:15)
[2017-03-15] MEDS ORDERED: MORPHINE 2 MG/ML 1ML SYRINGE IV ONE (04:15)
[2017-03-15] MEDS: LORazepam 2 MG/ML VIAL (J2060) IV PRN ×2 (04:29→06:30)
[2017-03-15] MEDS: levETIRAcetam INJection 500 MG in D5W MINI-BAG PLUS 100 ML IV SCH (09:00)
--- NOTE | 2017-03-19 13:34 | DSES ---
DATE OF ADMISSION: 03/14/2017 DATE OF DISCHARGE/: 03/15/2017 at 9:15 a.m. DISCHARGE DIAGNOSES: Metastatic small cell carcinoma of the lung with metastasis to liver, bone and brain. 2. Seizures. 3. Chronic anemia. 4. History of esophageal cancer status post radiation and chemotherapy in the remote past. 5. Chronic obstructive pulmonary disease (COPD) and chronic bronchitis. 6. Hypertension. 7. Diabetes. 8. Hyperlipidemia. 9. Decubitus ulcers bilaterally on the ischium. 10. History of supraventricular tachycardia. 11. Hypothyroid. 12. Neuropathy. 13. Chronic pain. 14. History of coronary artery disease. 15. Chronic hyponatremia. 16. Acute metabolic encephalopathy. HOSPITAL COURSE: This is a 71-year-old male with metastatic small cell lung cancer with metastases (METS) to liver, brain and bone presented to the hospital for seizure witnessed by daughter, which lasted for about [address] minute[address] a [address] scan in the emergency department (ED) done without contrast, which did not show any acute hemorrhage or infarct. Patient was admitted to the hospital for management. Patient was a DO NOT RESUSCITATE, DO NOT INTUBATE and no aggressive treatments advanced directive. However, family wanted to continue with conservative treatments at time. Discussion was held with family regarding hospice. Patient on presentation was confused and altered so all the discussions were held with daughter and other family members. Patient continued to have abnormal mental status and later in the day family requested comfort measures and hospice care. Patient was transferred to comfort level of care and subsequently, patient on 03/15/2017.
== END 2017-03-15 09:15 | disposition expired | DRG 100 ==
LOC: EDBD 22:05 → M ED 23:45 → M ED INP 03-14 01:04 → M PCU 03-14 02:13 → M MSPAV 03-14 13:26
PROVIDERS: ADMIT Internal Medicine; ATTEND Internal Medicine Nephrology
DX: R56.9 Unspecified convulsions (principal); G93.41 Metabolic encephalopathy; C34.90 Malignant neoplasm of unspecified part of unspecified bronchus or lung; C78.7 Secondary malignant neoplasm of liver and intrahepatic bile duct; C79.51 Secondary malignant neoplasm of bone; E87.1 Hypo-osmolality and hyponatremia; I47.1 Supraventricular tachycardia; C79.31 Secondary malignant neoplasm of brain; Z66 Do not resuscitate; Z51.5 Encounter for palliative care; L89.159 Pressure ulcer of sacral region, unspecified stage; E11.9 Type 2 diabetes mellitus without complications; E78.5 Hyperlipidemia, unspecified; I25.10 Atherosclerotic heart disease of native coronary artery without angina pectoris; J44.9 Chronic obstructive pulmonary disease, unspecified; I10 Essential (primary) hypertension; Z92.3 Personal history of irradiation; Z92.21 Personal history of antineoplastic chemotherapy; Z85.818 Personal history of malignant neoplasm of other sites of lip, oral cavity, and pharynx; Z90.49 Acquired absence of other specified parts of digestive tract; Z95.9 Presence of cardiac and vascular implant and graft, unspecified; Z88.0 Allergy status to penicillin; Z88.2 Allergy status to sulfonamides; Z79.899 Other long term (current) drug therapy